=== PATIENT | female | born 1960 | race Caucasian/White ===

== ENCOUNTER 2024-06-11 16:10 | Emergency (ER) | payer BC ==
[~2024-06-11] VITALS: Ht 160 cm; Wt 59.1 kg
[~2024-06-11 16:10] MED LIST: ALBUTEROL2.5 MG/3 M IH; BREYNA 160-4.10.3 GM IH; DICLOFENAC SODI50 GM TP; LEVOTHYROXINE0.05 MG PO
[2024-06-11] MEDS ORDERED: ESTRADIOL42.5 GM VG (16:50)
[2024-06-11] MEDS ORDERED: Ketorolac 30 MG/ML VIAL IM ONE (17:00)
[2024-06-11] MEDS ORDERED: Orphenadrine 60 MG/2ML AMP IM ONE (17:00)
[2024-06-11] MEDS ORDERED: Home Ketorolac 10 MG #4 TABS/PACK PO ONE (18:00)
[2024-06-11] MEDS ORDERED: Home Cyclobenzaprine 10 MG #2 TABS/PACK PO ONE (18:00)
[2024-06-11] MEDS ORDERED: KETOROLAC10 MG PO (18:02)
[2024-06-11] MEDS ORDERED: CYCLOBENZAPRINE10 M1 PO (18:02)
[2024-06-11 18:05] VITALS: BP 124/79
== END 2024-06-11 18:16 | disposition home or self-care (01) ==
LOC: ED 16:10
DX: M54.50 Low back pain, unspecified (principal)
CPT/HCPCS: J1885; J2360